=== PATIENT | female | born 1980 | race Caucasian/White ===

== ENCOUNTER → 2018-11-22 15:55 | Outpatient (CLI) | payer OTHER, SELFPAY ==
[2018-11-22 17:48] LABS: Alanine Aminotransferase 22 IU/L (9-52); Albumin Globulin Ratio 1.2 (1.0-2.8); Alkaline Phosphatase 67 U/L (38-126); Aspartate Aminotransferase 17 IU/L (14-36); BUN Creatinine Ratio 31.7 (6-22); Bilirubin Total 0.3 mg/dL (0.2-1.3); Blood Urea Nitrogen 19 mg/dL (7-17); Calcium 9.5 mg/dL (8.4-10.2); Carbon Dioxide 25 mmol/L (22-32); Chloride 107 mmol/L (98-107); Cholesterol 180 mg/dL (140-199); Estimated Glomerular Filt Rate > 60.0 mL/min (>60); Globulin 3.3 g/dL (1.7-4.1); Glucose 92 mg/dL (70-100); HDL Cholesterol 42 mg/dL (40-60); HEMOLYSIS < 15 (0-50); LDL Cholesterol Calculated 117 mg/dL (<100); Sodium 141 mmol/L (137-145); Total Protein 7.3 g/dL (6.3-8.2); Triglycerides 106 mg/dL (35-150)
[2018-11-22 17:49] LABS: Hemoglobin A1C% w Est Avg Glu 5.3 % (4.0-6.0)
== END ==
PROVIDERS: Visit Provider Internal Medicine
DX: E66.9 Obesity, unspecified (principal)
CPT/HCPCS: 36415; 80053; 80061; 83036

== ENCOUNTER → 2020-06-26 12:33 | Outpatient (CLI) | payer OTHER, SELFPAY ==
--- NOTE | 2020-06-26 12:37 | DI.RAD.S_ITS ---
PROCEDURE: XR LUMBAR SPINE 2-3V INDICATIONS: low back pain TECHNIQUE: 3 views of the lumbar spine were acquired. COMPARISON: None. FINDINGS: Bones: 5 [id number] vertebrae are present. Very mild rightward curvature of lumbar spine centered at L3-4 level. Mild degenerative endplate changes are noted at L4-5 level. No vertebral body compression fractures. No suspicious bony lesions. Soft tissues: Overlying bowel gas pattern is normal. No suspicious soft tissue calcifications. IMPRESSION: Very mild rightward curvature of lower lumbar spine. Mild degenerative endplate changes at L4-5 level. No compression fracture or spondylolisthesis. Dictated by: Ryan Montoya M.D. on 06/26/2020 at 14:07 Approved by: Ryan Montoya M.D. on 06/26/2020 at 14:15
== END ==
PROVIDERS: PCP Physician Assistant; Referring Provider Physician Assistant; Visit Provider Physician Assistant
DX: M54.41 Lumbago with sciatica, right side (principal)
CPT/HCPCS: 72100

== ENCOUNTER → 2020-07-24 12:39 | Outpatient (CLI) | payer OTHER, SELFPAY ==
--- NOTE | 2020-07-24 | DI.MRI.S_ITS ---
PROCEDURE: MR LUMBAR SPINE WO CON INDICATIONS: Radiculopathy, lumbar region TECHNIQUE: Noncontrast sagittal T1 spin echo and T2 fast echo, sagittal STIR, axial T1 and T2 fast spin echo through the lumbar spine. In cases with scoliosis, additional coronal T2 fast spin echo may be performed. COMPARISON: [facility], CR, XR LUMBAR SPINE 2-3V, 06/26/2020, 12:35. FINDINGS: Image quality: Excellent. Alignment and Curvature: There is mild retrolisthesis seen at the L5-S1 level. Bone Marrow: Marrow is of normal overall signal. No acute vertebral body compression fractures. Spinal Cord: Conus medullaris terminates at the L1 level. Visualized cord demonstrates normal signal and size. Paraspinous Soft Tissues: No paravertebral masses. T12-L1: Normal appearance. L1-L2: Normal appearance. L2-L3: Normal appearance. L3-L4: Normal appearance. L4-L5: The disc height is well-preserved. Loss of disc signal is seen at this level. Mild generalized disc bulge is seen. There is mild left-sided and no right-sided neural foraminal narrowing seen. The central canal is widely patent. L5-S1: Moderate loss of disc height is seen. Loss of disc signal is seen. Reactive marrow endplate changes are seen, which demonstrate mixed T1 weighted and T2-weighted signal, and are attributed to a combination of edema and fatty metaplasia (Modic type I and Modic type II changes). Moderate disc bulge is seen, with a central/right disc extrusion, with inferior migration of the disc material. Regional mass effect is seen, which is most prominent upon the transiting right S1 nerve root. Moderate central canal narrowing is seen. There is at least moderate right-sided and moderate to severe left-sided neural foraminal narrowing seen. There is a degree of compression seen upon the exiting nerve roots. IMPRESSION: Focal L5-S1 degenerative change is seen, with a right-sided disc extrusion. Dictated by: Bobby Peña M.D. on 07/24/2020 at 14:12 Approved by: Bobby Peña M.D. on 07/24/2020 at 14:16
== END ==
PROVIDERS: PCP Physician Assistant; Referring Provider Physician Assistant; Visit Provider Physician Assistant
DX: M51.17 Intervertebral disc disorders with radiculopathy, lumbosacral region (principal); M47.27 Other spondylosis with radiculopathy, lumbosacral region
CPT/HCPCS: 72148

== ENCOUNTER → 2020-09-09 13:35 | Outpatient (CLI) | payer OTHER, SELFPAY ==
[2020-09-09 16:13] LABS: COVID19 -Nasal RAPID Negative (Negative)
== END ==
PROVIDERS: PCP Physician Assistant; Visit Provider Physician Assistant
DX: Z01.812 Encounter for preprocedural laboratory examination (principal); Z20.822 Contact with and (suspected) exposure to COVID-19
CPT/HCPCS: 87635

== ENCOUNTER 2020-09-11 14:12 | Day surgery (SDC) | payer OTHER, SELFPAY ==
[2020-09-10 08:23] VITALS: BMI 54.9
--- NOTE | 2020-09-11 | DI.RAD.S_ITS ---
PROCEDURE: XR LUMBAR SPINE 2-3V INDICATIONS: L5-S1 MICRO DISCECTOMY TECHNIQUE: To 2 views of the lumbar spine were acquired. COMPARISON: [facility] [place], CR, XR LUMBAR SPINE 2 OR 3 VIEWS, 08/29/2020, 16:41. [facility], CR, XR LUMBAR SPINE 2-3V, 06/26/2020, 12:35. FINDINGS: 2 intraoperative images demonstrate a opaque surgical probe projected over the posterior elements at the L5-S1 level. IMPRESSION: Localization of the posterior elements at the L5-S1 level. Dictated by: Antoni CLEANING Interpreted: Homer Sidhu MD on 09/11/2020 at 16:50 Transcribed by: SUZE on 09/11/2020 at 16:51 Approved by: Gulshan Booker M.D. on 09/13/2020 at 9:30
[2020-09-11 14:36] VITALS: BP 127/90; PULSE 93; RESP 18; TEMP 36.6; O2SAT 97; BMI 53.7
--- NOTE | 2020-09-11 15:21 | PM.PREOP ---
Pre-operative Note COVID-19 COVID-19 status: Negative Result date/Date tested (Pos, Neg/Pending): 09/09/20 Interval Note History & Physical reviewed/Exam performed by Physician: Yes Changes to H&P: No
[2020-09-11] MEDS: LACTATED RINGERS 1,000 ML 42 ML IV (15:35)
[2020-09-11] MEDS: CEFAZOLIN 1 GM VIAL 2 GM IV (16:06)
--- NOTE | 2020-09-11 16:15 | SUR.OPER ---
Prone on spine table, head in foam head support, padded chest and pelvic supports, gel pad at knees, lower legs supported by pillows; nipples, genitalia and toes free of pressure, arms secured on foam padded arm boards at <90 degrees abduction. Tape over blanket at thigh secured to table.
[2020-09-11] MEDS: BUPIVACAINE 0.25% (PF) VIAL 30 ML INJ (16:21)
--- NOTE | 2020-09-11 17:02 | P.OP_ITS ---
Operative Date/Time/Diagnoses Date of procedure: 09/11/20 Time of procedure: 15:39 Pre-op diagnosis: L5-S1 disc herniation with radiculopathy Post-op diagnosis: same Procedure & Clinicians Procedure: 1. L5-S1 right microdiscectomy 2. Utilization of microsurgical technique and operating microscope Same procedure as scheduled: Yes Indications: Patient has been having chronic back pain and worsening lumbar radiculopathy. Patient failed multiple conservative management with worsening pain weakness and numbness in her lower extremity. Patient has been having difficulty performing activity of daily living. After discussing risks benefits of treatment options, patient elected proceed with surgery. Surgeon: Jerzy Bridges Tin Tie Machine Operator Automatic: Vikram Quigley Click Yes if Unassisted: No Anesthesia Type: General Operative Notes Closure Type: primary Specimen(s): none sent Estimated Blood Loss (mL): 5 Blood products transfused: none Procedure in detail: Patient was seen in the preoperative area. Risks and benefits of the surgery was discussed with the patient. Informed consent was obt ained from the patient and placed in the chart. Surgical site was marked. Patient was taken to the operative room. General anesthesia was administered. Prophylactic antibiotic was given to the patient less than 30 min before the incision was made. Patient was placed into a prone position on the Tom table. Patient's back was then prepped and draped in the sterile fashion. Time- out was performed at this time. Using AP and lateral C-arm imaging the interval between L5-S1 was identified and marked on patient's back. A 1 inch incision 1 in from midline was made on the right side. The fascia was incised in line with skin incision. Globus MARS retractors was placed inside the incision and docked onto the L5 lamina. Using microsurgical technique and operating microscope, a L5 laminotomy was performed using a Kerrison rongeur. Liagamentum flavum was resected at the site of the laminotomy. The disc space at L5-S1 was identified. Microdiscectomy was performed by incising the annulus with #11 blade. Microcurettes and pituitary was used to removed herniated disc fragments of disc from the epidural space. Several pieces of large loose fragments of disc was removed from the epidural sp lobito after the annulotomy was performed. After the microdiskectomy was completed, the area medial lateral superior and inferior to the area of the microdiskectomy was inspected and explored using a micro curette. No other impinging structure was identified. The wound was then irrigated with sterile normal saline. 40 mg Depo-Medrol was placed into the epidural space. The deep fascia was closed with 1-0 Vicryl. The subcutaneous tissue was closed with 2-0 Vicryl. The skin was closed with skin ramana. Patient tolerated the procedure well. There were no complications. Patient was transferred recovery room in stable condition. Complications: none Post-operative Condition: stable Disposition: PACU Plan for aftercare: Discharge to home
[2020-09-11 17:08] VITALS: BP 140/100; PULSE 120; RESP 14; TEMP 37.2; O2SAT 93
[2020-09-11 17:12] VITALS: BP 123/63; PULSE 113; RESP 16; O2SAT 94
[2020-09-11 17:19] VITALS: BP 122/69; PULSE 104; RESP 14; O2SAT 96
--- NOTE | 2020-09-11 17:25 | SUR.PHASEI ---
Pt awake, taking ice chips, denies pain/nausea. Hand off report given. Pt states that she feels 'just tired.'
[2020-09-11 17:39] VITALS: BP 127/66; PULSE 93; RESP 17; TEMP 36.1; O2SAT 94
[2020-09-11] MEDS: OXYCODONE/ACETAMINOPHEN 5/325 TABLET 1 TAB PO (17:49)
[2020-09-11 18:05] VITALS: BP 125/68; PULSE 99; RESP 14; TEMP 36.1; O2SAT 96
== END 2020-09-11 18:10 | disposition home or self-care (01) ==
PROVIDERS: PCP Physician Assistant; Referring Provider Orthopaedic Surgery Orthopaedic Surgery of the Spine; Visit Provider Orthopaedic Surgery Orthopaedic Surgery of the Spine
PROC: (CPT 63030; principal; 2020-09-11 15:45)
DX: M51.16 Intervertebral disc disorders with radiculopathy, lumbar region (principal); F17.210 Nicotine dependence, cigarettes, uncomplicated; E66.9 Obesity, unspecified
CPT/HCPCS: 63030; 72100; 76000; J0690; J1100; J1885; J2250; J2405; J2704; J2920; J3010